=== PATIENT | female | born 1985 | race Caucasian/White ===

== ENCOUNTER 2017-01-25 06:15 | Inpatient (IN) | payer SELFPAY ==
[~2017-01-25] VITALS: Ht 172.7 cm; Wt 59.3 kg
[2017-01-25 07:29] LABS: Basophils # (auto) 0 uL; Basophils % (auto) 0.5 % (0.0-2.0); CONDITION Y; DEFINITIVE SEE PRINTOUT; Eosinophils # (auto) 0.1 uL; Eosinophils % (auto) 1.6 % (0.0-7.0); Hematocrit 33.1 % (36.0-46.0); Hemoglobin 10.9 g/dL (12.2-16.2); Lymphocytes # (auto) 1.8 uL; Lymphocytes % (auto) 30.4 % (10.0-50.0); Mean Corpuscular Hemoglobin 26.6 pg (28.0-32.0); Mean Corpuscular Hgb Conc. 33.1 g/dL (32.0-36.0); Mean Corpuscular Volume 80.6 fL (80.0-100.0); Mean Platelet Volume 8.5 fL (7.4-10.4); Monocytes # (auto) 0.4 uL; Monocytes % (auto) 6.3 % (0.0-12.0); Neutrophils # (auto) 3.6 uL; Neutrophils % (auto) 61.2 % (37.0-80.0); Platelet Count (auto) 316 10^3/uL (140-450); Red Cell Distribution Width 16.7 % (11.6-16.0); White Blood Cell 5.9 10^3/uL (4.4-10.8)
[2017-01-25 07:35] LABS: Urine Bilirubin Negative (Negative); Urine Blood Negative /uL (Negative); Urine Color Yellow (Yellow); Urine Glucose Normal (Normal); Urine Ketone Negative (Negative); Urine Mucus FEW (None Seen); Urine Nitrite Negative (Negative); Urine RBC 1 /hpf (0 - 4); Urine Squamous Epithelial Cell FEW /hpf (<5)
[2017-01-25 07:47] LABS: Albumin 3.8 g/dL (3.4-5.0); BUN/Creatinine Ratio 11.6; Calcium 8.2 mg/dL (8.5-10.1); Magnesium 2.2 mg/dL (1.6-2.6); Potassium 4.4 mmol/L (3.5-5.1)
[2017-01-25 07:50] LABS: Bilirubin, Total 0.4 mg/dL (0.2-1.0); Total Protein 6.9 g/dL (6.4-8.2)
[2017-01-25] MEDS ORDERED: KETOROLAC TROMETH 30 MG/ML 1ML VIAL IV ONE (09:00)
[2017-01-25] MEDS ORDERED: METOCLOPRAMIDE HCL 5MG/ml INJ 2ml VIAL IV ONE (09:00)
[2017-01-25] MEDS ORDERED: MORPHINE SULFATE 4 MG/ML SYRG IV ONE (10:45)
[2017-01-25] MEDS ORDERED: MEPERIDINE HCL (25 MG/ML) 1ML VIAL IV ONE (11:00)
[2017-01-25] MEDS ORDERED: TEMAZEPAM 15 MG CAP PO PRN (11:30)
[2017-01-25] MEDS: SODIUM CHLORIDE 0.9% 1,000 ML IV SCH (11:30)
[2017-01-25] MEDS ORDERED: cefTRIAXone 1GM/50ML D5W 50 ML IV ONE (11:30)
[2017-01-25] MEDS ORDERED: ACETAMINOPHEN 325 MG TAB PO PRN (11:30)
[2017-01-25] MEDS ORDERED: NITROGLYCERIN 0.4 MG SL TAB SL PRN (11:30)
[2017-01-25] MEDS ORDERED: PANTOPRAZOLE 40 MG/10 ML VIAL IV ONE (11:45)
[2017-01-25] MEDS ORDERED: FAMOTIDINE (10MG/ML) 2ML VL IV ONE (11:45)
[2017-01-25] MEDS ORDERED: SODIUM CHLORIDE 0.9% 2,000 ML IV ONE (11:45)
[2017-01-25 12:55] VITALS: BP 125/71
[2017-01-25 13:00] VITALS: BP 125/71
[2017-01-25] MEDS: HYDROmorphone HCL 2 MG/ML VL IV PRN ×2 (14:54→18:45)
[2017-01-25] MEDS: metroNIDAZOLE 500MG/100ML 100 ML IV SCH ×2 (14:55→21:55)
[2017-01-25] MEDS: ONDANSETRON HCL 4 MG/2 ML VIAL IV PRN ×2 (15:10→18:45)
[2017-01-25 17:00] VITALS: BP 124/44
[2017-01-25] MEDS: HYDROcodone-ACET 5/325MG TAB PO PRN (20:10)
[2017-01-25 21:37] VITALS: BP 142/80
[2017-01-25] MEDS ORDERED: DIPH2.5T73 PO (22:00)
[2017-01-25] MEDS ORDERED: CYCL1TAB18 PO (22:00)
[2017-01-25] MEDS ORDERED: ONDA4TAB5 PO (22:00)
[2017-01-25] MEDS ORDERED: CYAN1TAB14 PO (22:04)
[2017-01-25] MEDS ORDERED: DICY10CA12 PO (22:04)
[2017-01-25] MEDS ORDERED: FAMO-12 PO (22:04)
[2017-01-25] MEDS ORDERED: OXY20CRT PO (22:04)
[2017-01-26] MEDS: ONDANSETRON HCL 4 MG/2 ML VIAL IV PRN ×6 (00:03→21:43)
[2017-01-26] MEDS: HYDROmorphone HCL 2 MG/ML VL IV PRN ×6 (00:03→21:43)
[2017-01-26] MEDS: SODIUM CHLORIDE 0.9% 1,000 ML IV SCH ×4 (04:08→15:34)
[2017-01-26 04:38] VITALS: BP 139/71
[2017-01-26] MEDS: metroNIDAZOLE 500MG/100ML 100 ML IV SCH ×3 (05:56→21:05)
[2017-01-26 06:51] LABS: Basophils # (auto) 0 uL; Basophils % (auto) 0.4 % (0.0-2.0); CONDITION Y; DEFINITIVE SEE PRINTOUT; Eosinophils # (auto) 0.1 uL; Eosinophils % (auto) 1.2 % (0.0-7.0); Hemoglobin 9.4 g/dL (12.2-16.2); Lymphocytes # (auto) 2.2 uL; Lymphocytes % (auto) 34.2 % (10.0-50.0); Mean Corpuscular Hemoglobin 26.2 pg (28.0-32.0); Mean Corpuscular Hgb Conc. 32.5 g/dL (32.0-36.0); Mean Corpuscular Volume 80.6 fL (80.0-100.0); Mean Platelet Volume 8.8 fL (7.4-10.4); Monocytes # (auto) 0.4 uL; Monocytes % (auto) 6.3 % (0.0-12.0); Neutrophils # (auto) 3.7 uL; Neutrophils % (auto) 57.9 % (37.0-80.0); Platelet Count (auto) 236 10^3/uL (140-450); Red Cell Distribution Width 16.7 % (11.6-16.0); White Blood Cell 6.4 10^3/uL (4.4-10.8)
[2017-01-26 07:00] LABS: Albumin 3.3 g/dL (3.4-5.0); BUN/Creatinine Ratio 11.5; Calcium 7.8 mg/dL (8.5-10.1); Potassium 4.2 mmol/L (3.5-5.1)
[2017-01-26 07:03] LABS: Bilirubin, Total 0.3 mg/dL (0.2-1.0); Total Protein 5.9 g/dL (6.4-8.2)
[2017-01-26 09:00] VITALS: BP 129/68
[2017-01-26] MEDS ORDERED: cefTRIAXone 1GM/50ML D5W 50 ML IV SCH (09:00)
[2017-01-26] MEDS ORDERED: FAMOTIDINE (10MG/ML) 2ML VL IV SCH (10:00)
[2017-01-26] MEDS: PANTOPRAZOLE 40 MG/10 ML VIAL IV SCH (10:00)
[2017-01-26] MEDS: MULTIPLE VITAMIN TAB PO SCH (10:32)
[2017-01-26 13:00] VITALS: BP 135/69
[2017-01-26] MEDS: HYDROcodone-ACET 5/325MG TAB PO PRN (15:33)
[2017-01-26] MEDS ORDERED: NICOTINE 7MG/24HR TOPICAL PATCH TD ONE (16:15)
[2017-01-26 17:00] VITALS: BP 133/75
[2017-01-26] MEDS: SUCRALFATE 1 GM/10 ML ORAL SUSP PO SCH ×2 (17:30→21:05)
[2017-01-26 21:56] VITALS: BP 129/66
[2017-01-27] MEDS: HYDROmorphone HCL 2 MG/ML VL IV PRN ×5 (02:09→21:15)
[2017-01-27] MEDS: ONDANSETRON HCL 4 MG/2 ML VIAL IV PRN ×5 (02:09→21:15)
[2017-01-27 04:41] VITALS: BP 133/72
[2017-01-27] MEDS: SUCRALFATE 1 GM/10 ML ORAL SUSP PO SCH ×4 (06:28→22:14)
[2017-01-27] MEDS: metroNIDAZOLE 500MG/100ML 100 ML IV SCH (06:28)
[2017-01-27 08:00] VITALS: BP 139/85
[2017-01-27 09:00] VITALS: BP 139/85
[2017-01-27] MEDS: MULTIPLE VITAMIN TAB PO SCH (09:31)
[2017-01-27] MEDS: HYDROcodone-ACET 5/325MG TAB PO PRN ×3 (09:31→23:59)
[2017-01-27] MEDS: PANTOPRAZOLE 40 MG/10 ML VIAL IV SCH (09:31)
[2017-01-27] MEDS: NICOTINE 7MG/24HR TOPICAL PATCH TD SCH (09:32)
[2017-01-27] MEDS ORDERED: DULoxetine HCL 30 MG CAP PO ONE (10:45)
[2017-01-27] MEDS: SODIUM CHLORIDE 0.9% 1,000 ML IV SCH (11:56)
[2017-01-27] MEDS ORDERED: GOLYTELY 4L KIT PO ONE (12:15)
[2017-01-27 13:00] VITALS: BP 156/81
[2017-01-27 17:00] VITALS: BP 154/71
[2017-01-27] MEDS: DULoxetine HCL 30 MG CAP PO SCH (22:14)
[2017-01-27 22:41] VITALS: BP 138/65
[2017-01-28] MEDS: SODIUM CHLORIDE 0.9% 1,000 ML IV SCH ×2 (00:48→13:16)
[2017-01-28] MEDS: ONDANSETRON HCL 4 MG/2 ML VIAL IV PRN ×3 (01:47→13:45)
[2017-01-28] MEDS: HYDROmorphone HCL 2 MG/ML VL IV PRN ×4 (01:47→16:31)
[2017-01-28 05:18] VITALS: BP 110/53
[2017-01-28] MEDS: SUCRALFATE 1 GM/10 ML ORAL SUSP PO SCH ×2 (06:02→11:30)
[2017-01-28 07:33] LABS: Cholesterol 151 mg/dL (< 200); HDL Cholesterol 46 mg/dL (40-59); LDL Cholesterol 106 mg/dL (< 100); Triglycerides 57 mg/dL (< 150)
[2017-01-28 08:00] VITALS: BP 142/79
[2017-01-28 08:04] LABS: INR 1.18 (0.9-1.15); Partial Thromboplastin Time 25.8 sec (22.64-33.71); Prothrombin Time 12.9 sec (9.37-12.3)
[2017-01-28] MEDS ORDERED: LIDOCAINE 2%HCL (LOCAL ANESTH.) INJ 20ML MDV ONE (08:11)
[2017-01-28] MEDS ORDERED: LIDOCAINE VISCOUS 2% 15ML UD ONE (08:12)
[2017-01-28] MEDS ORDERED: diphenhdrAMINE HCL 50 MG/1 ML VL ONE (08:12)
[2017-01-28] MEDS ORDERED: SODIUM CHLORIDE LOCK 10 ML ONE (08:12)
[2017-01-28] MEDS ORDERED: MIDAZOLAM HCL 5 MG/ML-1ML VIAL ONE (08:18)
[2017-01-28] MEDS: HYDROcodone-ACET 5/325MG TAB PO PRN (08:50)
[2017-01-28 09:00] VITALS: BP 142/79
[2017-01-28] MEDS: PANTOPRAZOLE 40 MG/10 ML VIAL IV SCH (10:00)
[2017-01-28] MEDS: DULoxetine HCL 30 MG CAP PO SCH ×2 (10:00→13:48)
[2017-01-28] MEDS: MULTIPLE VITAMIN TAB PO SCH ×2 (10:00→13:48)
[2017-01-28] MEDS: NICOTINE 7MG/24HR TOPICAL PATCH TD SCH (10:00)
[2017-01-28] MEDS: MIDAZOLAM HCL 5 MG/ML-1ML VIAL ONE ×3 (12:15→12:22)
[2017-01-28] MEDS: fentaNYL CITRATE 100 MCG/2 ML VL ONE ×4 (12:15→12:27)
[2017-01-28] MEDS ORDERED: CHL4PW PO (15:41)
[2017-01-28] MEDS ORDERED: PANT40T PO (15:41)
[2017-01-28] MEDS ORDERED: SUCR1TAB38 OR (15:41)
[2017-01-28 16:08] VITALS: BP 142/79
[2017-01-28] MEDS ORDERED: ONDA4TAB8 SL (16:53)
[2017-01-28] MEDS ORDERED: CHOLESTYRAMINE 4 GM POWDER PO SCH (22:00)
[2017-01-29] MEDS ORDERED: PANTOPRAZOLE 40 MG TAB PO SCH (10:00)
== END 2017-01-28 17:05 | disposition home or self-care (01) | DRG 372 ==
LOC: ER 06:17 → TELE 06:18 → TELE-CENTR 12:38 → CENTRAL 01-26 17:45
PROVIDERS: ADMIT Internal Medicine; ATTEND Internal Medicine
PROC: 0DBE8ZX Excision of Large Intestine, Via Natural or Artificial Opening Endoscopic, Diagnostic (ICD-10-PCS; principal; 2017-01-28 12:11)
PROC: 0DJ08ZZ Inspection of Upper Intestinal Tract, Via Natural or Artificial Opening Endoscopic (ICD-10-PCS; 2017-01-28 12:11)
DX: A04.7 Enterocolitis due to Clostridium difficile (principal); K50.90 Crohn's disease, unspecified, without complications; Z68.1 Body mass index [BMI] 19.9 or less, adult; E83.51 Hypocalcemia; D63.8 Anemia in other chronic diseases classified elsewhere; E86.0 Dehydration; F17.210 Nicotine dependence, cigarettes, uncomplicated; M79.7 Fibromyalgia; G89.29 Other chronic pain; K20.9 Esophagitis, unspecified; K64.8 Other hemorrhoids; M54.9 Dorsalgia, unspecified; E66.9 Obesity, unspecified; F12.90 Cannabis use, unspecified, uncomplicated; R74.8 Abnormal levels of other serum enzymes; N20.0 Calculus of kidney; Z88.5 Allergy status to narcotic agent; Z83.3 Family history of diabetes mellitus; Z82.49 Family history of ischemic heart disease and other diseases of the circulatory system; Z80.9 Family history of malignant neoplasm, unspecified; Z87.442 Personal history of urinary calculi; Z98.84 Bariatric surgery status; Z91.030 Bee allergy status; Z91.041 Radiographic dye allergy status
CPT/HCPCS: 36415; 74176; 80053; 80061; 81001; 82150; 83690; 83735; 84443; 84702; 85025; 85610; 85730; 87045; 87493; 87899; 93005; 96361; 96365; 96375; C9113; J0696; J1885; J2250; J2405; J3490

== ENCOUNTER 2017-01-31 16:00 | Emergency (ER) | payer SELFPAY ==
[~2017-01-31] VITALS: Ht 172.7 cm; Wt 90.7 kg
[~2017-01-31 16:00] MED LIST: CHL4PW PO; CYAN1TAB14 PO; CYCL1TAB18 PO; DICY10CA12 PO; DIPH2.5T73 PO; FAMO-12 PO; ONDA4TAB5 PO; ONDA4TAB8 SL; OXY20CRT PO; PANT40T PO; SUCR1TAB38 OR
[2017-01-31 16:32] LABS: Basophils # (auto) 0 uL; Basophils % (auto) 0.3 % (0.0-2.0); Eosinophils # (auto) 0.1 uL; Hematocrit 32.6 % (36.0-46.0); Hemoglobin 10.6 g/dL (12.2-16.2); Lymphocytes # (auto) 2.9 uL; Lymphocytes % (auto) 27.2 % (10.0-50.0); Mean Corpuscular Hemoglobin 26.3 pg (28.0-32.0); Mean Corpuscular Hgb Conc. 32.7 g/dL (32.0-36.0); Mean Corpuscular Volume 80.4 fL (80.0-100.0); Mean Platelet Volume 8.3 fL (7.4-10.4); Monocytes # (auto) 0.7 uL; Monocytes % (auto) 6.1 % (0.0-12.0); Neutrophils # (auto) 6.9 uL; Neutrophils % (auto) 65.4 % (37.0-80.0); Platelet Count (auto) 252 10^3/uL (140-450); Red Cell Distribution Width 16.3 % (11.6-16.0); White Blood Cell 10.6 10^3/uL (4.4-10.8)
[2017-01-31 16:44] LABS: Albumin 3.9 g/dL (3.4-5.0); BUN/Creatinine Ratio 2.9; Bilirubin, Total 0.5 mg/dL (0.2-1.0); Calcium 8.4 mg/dL (8.5-10.1); Potassium 3.3 mmol/L (3.5-5.1); Total Protein 7.1 g/dL (6.4-8.2)
[2017-01-31] MEDS ORDERED: SODIUM CHLORIDE 0.9% 1,000 ML IV ONE (20:14)
[2017-01-31] MEDS ORDERED: HYDROmorphone HCL 2 MG/ML VL IV ONE (20:15)
[2017-01-31] MEDS ORDERED: ONDANSETRON HCL 4 MG/2 ML VIAL IV ONE (20:15)
[2017-02-01] MEDS ORDERED: HYDROmorphone HCL 2 MG/ML VL IV ONE
[2017-02-01] MEDS ORDERED: NALBUPHINE HCL 10 MG/1ml INJECTION IV ONE (04:00)
[2017-02-01] MEDS ORDERED: ONDANSETRON HCL 4 MG/2 ML VIAL IV ONE ×2 (04:00)
[2017-02-01 06:04] VITALS: BP 126/71
== END 2017-02-01 04:45 | disposition home or self-care (01) ==
LOC: ER 16:04
DX: K52.9 Noninfective gastroenteritis and colitis, unspecified (principal); Z87.442 Personal history of urinary calculi; Z88.6 Allergy status to analgesic agent; Z91.041 Radiographic dye allergy status; Z79.899 Other long term (current) drug therapy
CPT/HCPCS: 36415; 74176; 80053; 80320; 83690; 85025; 96361; 96374; 96375; 96376; 99285; J1170; J2300; J2405; J7030